=== PATIENT | male | born 1990 | race Caucasian/White ===

== ENCOUNTER 2017-04-17 06:45 | Emergency (ER) | payer SELFPAY ==
[~2017-04-17] VITALS: Ht 175.3 cm; Wt 98.4 kg
[~2017-04-17 06:45] MED LIST: HTN MED PO; LISINOPRIL; METF10002 PO; METF500T27
[2017-04-17] MEDS ORDERED: SODIUM CHLORIDE 0.9% 1,000ML IVBOLUS ONE (09:00)
[2017-04-17] MEDS ORDERED: SODIUM CHLORIDE FLUSH 10ML SYR IVF ONE (09:00)
[2017-04-17 09:22] LABS: BASOPHILS # (AUTO) 0.03 x10^3/uL (0-0.1); BASOPHILS % (AUTO) 0 % (0-1); EOSINOPHILS # (AUTO) 0.14 x10^3/uL (0-0.4); EOSINOPHILS % (AUTO) 2 % (1-7); LYMPHOCYTES # (AUTO) 2.35 x10^3/uL (1-3.4); LYMPHOCYTES % (AUTO) 28 % (22-44); MD NO; MEAN CORPUSCULAR HEMOGLOBIN 29.2 pg (27.5-34.5); MEAN CORPUSCULAR HGB CONC 34.3 g/dL (33.2-36.2); MEAN CORPUSCULAR VOLUME 85.3 fL (81-97); MEAN PLATELET VOLUME 8.8 fL (7.4-10.4); MONOCYTES # (AUTO) 0.45 x10^3/uL (0.2-0.8); MONOCYTES % (AUTO) 5 % (2-9); NEUTROPHILS # (AUTO) 5.43 x10^3/uL (1.8-6.8); NEUTROPHILS % (AUTO) 65 % (42-75); PLATELET COUNT 185 x10^3/uL (130-400); RED BLOOD COUNT 5.67 x10^6/uL (4.38-5.82)
[2017-04-17 09:32] LABS: ALANINE AMINOTRANSFERASE 30 U/L (12-78); ALBUMIN 4.1 g/dL (3.4-5.0); ANION GAP 6 mmol/L (5-15); CALCIUM 8.5 mg/dL (8.5-10.1); CHLORIDE 103 mmol/L (98-107); CREATININE 0.86 mg/dL (0.7-1.3)
[2017-04-17 09:35] LABS: ALKALINE PHOSPHATASE 100 U/L (45-117); BILIRUBIN,TOTAL 0.7 mg/dL (0.2-1.0); TOTAL PROTEIN 7.5 g/dL (6.4-8.2); TROPONIN I < 0.015 ng/mL (0.000-0.045)
[2017-04-17 10:54] VITALS: BP 117/81
== END 2017-04-17 10:56 | disposition home or self-care (01) ==
LOC: ED 10:46
DX: M25.512 Pain in left shoulder (principal); E11.65 Type 2 diabetes mellitus with hyperglycemia; I10 Essential (primary) hypertension
CPT/HCPCS: 36415; 71045; 80053; 82962; 84484; 85025; 93005; 96360; 96361; 99285; J7030

== ENCOUNTER 2017-06-18 23:33 | Emergency (ER) | payer BC, OTHER ==
[~2017-06-18] VITALS: Ht 175.3 cm; Wt 99.8 kg
[2017-06-18 23:58] LABS: MICROSCOPIC INDICATED
[2017-06-19 00:15] LABS: CULTURE INDICATED? NO
[2017-06-19 00:17] LABS: BASOPHILS # (AUTO) 0.03 x10^3/uL (0-0.1); BASOPHILS % (AUTO) 0 % (0-1); EOSINOPHILS # (AUTO) 0.16 x10^3/uL (0-0.4); EOSINOPHILS % (AUTO) 2 % (1-7); LYMPHOCYTES # (AUTO) 3.42 x10^3/uL (1-3.4); LYMPHOCYTES % (AUTO) 32 % (22-44); MD NO; MEAN CORPUSCULAR HEMOGLOBIN 29.7 pg (27.5-34.5); MEAN CORPUSCULAR HGB CONC 34.4 g/dL (33.2-36.2); MEAN CORPUSCULAR VOLUME 86.3 fL (81-97); MEAN PLATELET VOLUME 8.6 fL (7.4-10.4); MONOCYTES # (AUTO) 0.72 x10^3/uL (0.2-0.8); MONOCYTES % (AUTO) 7 % (2-9); NEUTROPHILS # (AUTO) 6.38 x10^3/uL (1.8-6.8); NEUTROPHILS % (AUTO) 60 % (42-75); PLATELET COUNT 214 x10^3/uL (130-400); RED BLOOD COUNT 5.72 x10^6/uL (4.38-5.82); RED CELL DISTRIBUTION WIDTH 13.6 % (9.4-14.8)
[2017-06-19 00:30] LABS: ACETONE, SERUM Trace (10mg/dL) mg/dL (Negative)
[2017-06-19] MEDS ORDERED: SODIUM CHLORIDE FLUSH 10ML SYR IVF ONE (00:30)
[2017-06-19] MEDS ORDERED: SODIUM CHLORIDE 0.9% 1,000ML IVBOLUS ONE (00:30)
[2017-06-19 00:31] LABS: ALANINE AMINOTRANSFERASE 37 U/L (12-78); ANION GAP 10 mmol/L (5-15); CHLORIDE 106 mmol/L (98-107); CREATININE 0.89 mg/dL (0.7-1.3)
[2017-06-19 00:34] LABS: ALKALINE PHOSPHATASE 100 U/L (45-117); BILIRUBIN,TOTAL 0.9 mg/dL (0.2-1.0); TOTAL PROTEIN 7.6 g/dL (6.4-8.2)
[2017-06-19] MEDS ORDERED: FLUCONAZOLE 200 MG TABLET PO STA (00:54)
[2017-06-19] MEDS ORDERED: metFORMIN 500 MG TABLET PO STA (00:54)
[2017-06-19 01:43] VITALS: BP 106/63
== END 2017-06-19 02:03 | disposition home or self-care (01) ==
LOC: ED 23:59
DX: E11.65 Type 2 diabetes mellitus with hyperglycemia (principal); B37.9 Candidiasis, unspecified
CPT/HCPCS: 36415; 80053; 81001; 82010; 85025; 96360; 99284; J7030

== ENCOUNTER 2017-10-26 21:58 | Emergency (ER) | payer SELFPAY ==
[~2017-10-26] VITALS: Ht 175.3 cm; Wt 101.6 kg
[2017-10-26 21:59] VITALS: BP 125/82
[2017-10-26 22:40] LABS: BASOPHILS # (AUTO) 0.03 x10^3/uL (0-0.1); BASOPHILS % (AUTO) 0 % (0-1); EOSINOPHILS # (AUTO) 0.23 x10^3/uL (0-0.4); EOSINOPHILS % (AUTO) 3 % (1-7); LYMPHOCYTES % (AUTO) 31 % (22-44); MD NO; MEAN CORPUSCULAR HEMOGLOBIN 29.9 pg (27.5-34.5); MEAN CORPUSCULAR HGB CONC 34.5 g/dL (33.2-36.2); MEAN CORPUSCULAR VOLUME 86.6 fL (81-97); MEAN PLATELET VOLUME 8.6 fL (7.4-10.4); MONOCYTES # (AUTO) 0.67 x10^3/uL (0.2-0.8); MONOCYTES % (AUTO) 7 % (2-9); NEUTROPHILS # (AUTO) 5.56 x10^3/uL (1.8-6.8); NEUTROPHILS % (AUTO) 59 % (42-75); PLATELET COUNT 205 x10^3/uL (130-400); RED BLOOD COUNT 5.39 x10^6/uL (4.38-5.82)
[2017-10-26 22:51] LABS: ALBUMIN 3.9 g/dL (3.4-5.0); ANION GAP 8 mmol/L (5-15); CALCIUM 8.5 mg/dL (8.5-10.1); CHLORIDE 104 mmol/L (98-107); CREATININE 0.94 mg/dL (0.7-1.3)
== END 2017-10-26 23:28 | disposition home or self-care (01) ==
LOC: ED 22:55
DX: R42 Dizziness and giddiness (principal); I10 Essential (primary) hypertension; E11.65 Type 2 diabetes mellitus with hyperglycemia
CPT/HCPCS: 36415; 80048; 82040; 82962; 85025; 93005; 99285

== ENCOUNTER 2017-11-16 18:19 | Emergency (ER) | payer SELFPAY ==
[~2017-11-16] VITALS: Ht 175.3 cm; Wt 103.0 kg
[2017-11-16 19:25] LABS: ALANINE AMINOTRANSFERASE 50 U/L (12-78); ANION GAP 9 mmol/L (5-15); CALCIUM 8.8 mg/dL (8.5-10.1); CHLORIDE 103 mmol/L (98-107); CREATININE 0.82 mg/dL (0.7-1.3)
[2017-11-16 19:27] LABS: ALKALINE PHOSPHATASE 90 U/L (45-117); TOTAL PROTEIN 7.7 g/dL (6.4-8.2)
[2017-11-16 19:28] LABS: BASOPHILS # (AUTO) 0.01 x10^3/uL (0-0.1); BASOPHILS % (AUTO) 0 % (0-1); EOSINOPHILS # (AUTO) 0.25 x10^3/uL (0-0.4); EOSINOPHILS % (AUTO) 2 % (1-7); LYMPHOCYTES # (AUTO) 1.14 x10^3/uL (1-3.4); LYMPHOCYTES % (AUTO) 9 % (22-44); MD NO; MEAN CORPUSCULAR HEMOGLOBIN 29.5 pg (27.5-34.5); MEAN CORPUSCULAR HGB CONC 34.2 g/dL (33.2-36.2); MEAN CORPUSCULAR VOLUME 86.2 fL (81-97); MEAN PLATELET VOLUME 8.9 fL (7.4-10.4); MONOCYTES # (AUTO) 0.74 x10^3/uL (0.2-0.8); MONOCYTES % (AUTO) 6 % (2-9); NEUTROPHILS # (AUTO) 10.83 x10^3/uL (1.8-6.8); NEUTROPHILS % (AUTO) 84 % (42-75); PLATELET COUNT 201 x10^3/uL (130-400); RED BLOOD COUNT 5.49 x10^6/uL (4.38-5.82); RED CELL DISTRIBUTION WIDTH 13.2 % (9.4-14.8)
[2017-11-16 20:21] LABS: MICROSCOPIC NOT IND
[2017-11-16 20:24] LABS: CULTURE INDICATED? NO
[2017-11-16 20:38] VITALS: BP 117/83
== END 2017-11-16 20:57 | disposition home or self-care (01) ==
LOC: ED 20:55
DX: G44.209 Tension-type headache, unspecified, not intractable (principal); R42 Dizziness and giddiness; I10 Essential (primary) hypertension; E11.9 Type 2 diabetes mellitus without complications; F17.200 Nicotine dependence, unspecified, uncomplicated
CPT/HCPCS: 36415; 71045; 80053; 81003; 85025; 93005; 99285

== ENCOUNTER 2019-10-27 11:14 | Emergency (ER) | payer SELFPAY ==
[~2019-10-27] VITALS: Ht 175.3 cm; Wt 95.0 kg
[2019-10-27 11:59] LABS: BASOPHILS # (AUTO) 0.04 x10^3/uL (0-0.1); BASOPHILS % (AUTO) 1 % (0-1); EOSINOPHILS % (AUTO) 1 % (1-7); LYMPHOCYTES # (AUTO) 1.83 x10^3/uL (1-3.4); LYMPHOCYTES % (AUTO) 24 % (22-44); MD NO; MEAN CORPUSCULAR HGB CONC 33.6 g/dL (33.2-36.2); MEAN CORPUSCULAR VOLUME 86.1 fL (81-97); MEAN PLATELET VOLUME 8.6 fL (7.4-10.4); MONOCYTES # (AUTO) 0.43 x10^3/uL (0.2-0.8); MONOCYTES % (AUTO) 6 % (2-9); NEUTROPHILS # (AUTO) 5.18 x10^3/uL (1.8-6.8); NEUTROPHILS % (AUTO) 68 % (42-75); PH, VENOUS 7.397 pH (7.320-7.420); PLATELET COUNT 178 x10^3/uL (130-400); RED BLOOD COUNT 5.58 x10^6/uL (4.38-5.82); RED CELL DISTRIBUTION WIDTH 13.1 % (9.4-14.8)
[2019-10-27] MEDS ORDERED: SODIUM CHLORIDE 0.9% 1,000ML IVBOLUS ONE ×2 (12:00→13:00)
--- NOTE | 2019-10-27 12:05 | NUR ---
URINE SAMPLE COLLECTED.
[2019-10-27] MEDS ORDERED: METF500T17 PO (12:09)
[2019-10-27 12:10] LABS: ALBUMIN 4.1 g/dL (3.4-5.0); ANION GAP 9 mmol/L (5-15); CALCIUM 8.9 mg/dL (8.5-10.1); CHLORIDE 101 mmol/L (98-107); CREATININE 1.15 mg/dL (0.7-1.3)
[2019-10-27 12:18] LABS: MICROSCOPIC NOT IND
[2019-10-27 12:47] LABS: ACETONE, SERUM Trace (Negative)
[2019-10-27] MEDS ORDERED: INSULIN REGULAR 100 UNITS/ML, 3ML VIAL IVPush ONE (13:00)
[2019-10-27] MEDS ORDERED: INSULIN SINGLE DOSE, ER ONE (13:05)
[2019-10-27 13:54] VITALS: BP 109/64
== END 2019-10-27 14:24 | disposition home or self-care (01) ==
LOC: ED 11:39
DX: E11.65 Type 2 diabetes mellitus with hyperglycemia (principal); I10 Essential (primary) hypertension; R35.8 Other polyuria
CPT/HCPCS: 36415; 80048; 81003; 82010; 82040; 82803; 82962; 85025; 96361; 96374; 99283; J1815; J7030

== ENCOUNTER 2020-04-06 17:21 | Emergency (ER) | payer SELFPAY ==
[~2020-04-06] VITALS: Ht 175.3 cm; Wt 59.4 kg
[~2020-04-06 17:21] MED LIST changes: +METF500T17 PO
--- NOTE | 2020-04-06 18:14 | NUR ---
RADIO MAINTAINER: PT TO ROOM FROM LOBBY
[2020-04-06 18:15] LABS: BASOPHILS % (AUTO) 1 % (0-1); EOSINOPHILS % (AUTO) 1 % (1-7); LYMPHOCYTES % (AUTO) 18 % (22-44); MEAN CORPUSCULAR HGB CONC 34.6 g/dL (33.2-36.2); MEAN PLATELET VOLUME 8.6 fL (7.4-10.4); MONOCYTES % (AUTO) 5 % (2-9); NEUTROPHILS % (AUTO) 75 % (42-75); PLATELET COUNT 215 x10^3/uL (130-400); RED BLOOD COUNT 5.61 x10^6/uL (4.38-5.82); RED CELL DISTRIBUTION WIDTH 13.9 % (9.4-14.8)
--- NOTE | 2020-04-06 18:16 | NUR ---
BREAK RN: PT C/O CENTER ABD PAIN X5 DAYS. VS STABLE. NO ACUTE DISTRESS NOTED. CALL LIGHT IN PLACE. REPORT GIVEN TO RONY CHANDLER
[2020-04-06 18:18] LABS: ALANINE AMINOTRANSFERASE 32 U/L (12-78); ALBUMIN 4.2 g/dL (3.4-5.0); ANION GAP 9 mmol/L (5-15); CALCIUM 8.9 mg/dL (8.5-10.1); CHLORIDE 103 mmol/L (98-107); CREATININE 0.85 mg/dL (0.7-1.3)
[2020-04-06 18:20] LABS: ALKALINE PHOSPHATASE 97 U/L (45-117); BILIRUBIN,TOTAL 0.7 mg/dL (0.2-1.0); TOTAL PROTEIN 7.4 g/dL (6.4-8.2)
[2020-04-06 18:24] LABS: MD NO
--- NOTE | 2020-04-06 18:24 | NUR ---
BREAK RN: REPORT GIVEN TO RONY AMYO
[2020-04-06 18:30] VITALS: BP 106/65
--- NOTE | 2020-04-06 18:44 | NUR ---
pt in bed with no signs or symptoms of acute distress noted respirations even and unlabored md at bedside to do ultrasound.
[2020-04-06 18:50] LABS: MICROSCOPIC NOT IND
== END 2020-04-06 19:40 | disposition home or self-care (01) ==
LOC: ED 19:30
DX: R10.84 Generalized abdominal pain (principal); K59.00 Constipation, unspecified; I10 Essential (primary) hypertension; E11.9 Type 2 diabetes mellitus without complications; Z90.89 Acquired absence of other organs
CPT/HCPCS: 36415; 80053; 81003; 85025; 99283

== ENCOUNTER 2020-05-04 16:33 | Emergency (ER) | payer OTHER ==
[~2020-05-04] VITALS: Ht 175.3 cm; Wt 92.3 kg
[2020-05-04 16:50] VITALS: BP 117/77
--- NOTE | 2020-05-04 17:05 | NUR ---
Pt found in room with c-collar in use lying flat on ED gurney speaking on his cellphone. Visitor at bedside in chair as well. Awaiting MD exam. kitchen designer completed.
[2020-05-04] MEDS ORDERED: ACETAMINOPHEN 500 MG TABLET ONE (17:15)
--- NOTE | 2020-05-04 17:18 | NUR ---
Pt medicated with Tylenol as ordered. 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 Awaiting radiology now.
[2020-05-04] MEDS ORDERED: ACETAMINOPHEN 500 MG TABLET PO ONE (17:30)
--- NOTE | 2020-05-04 18:10 | NUR ---
Report given to meal break José Antonio URIBE, and care transferred.
--- NOTE | 2020-05-04 18:40 | NUR ---
Care reassumed. José Antonio reports pt is out of c-collar and has one more radiology exam ordered.
== END 2020-05-04 19:40 | disposition home or self-care (01) ==
LOC: ED 19:34
DX: S16.1XXA Strain of muscle, fascia and tendon at neck level, initial encounter (principal); S39.012A Strain of muscle, fascia and tendon of lower back, initial encounter; E11.9 Type 2 diabetes mellitus without complications; V49.09XA Driver injured in collision with other motor vehicles in nontraffic accident, initial encounter; Y93.89 Activity, other specified; Y92.410 Unspecified street and highway as the place of occurrence of the external cause; Y99.8 Other external cause status
CPT/HCPCS: 72110; 72125; 99284

== ENCOUNTER 2020-10-04 19:36 | Emergency (ER) | payer OTHER ==
[~2020-10-04] VITALS: Ht 175.3 cm; Wt 88.8 kg
--- NOTE | 2020-10-04 22:34 | NUR ---
PT AMBULATED TO ROOM. FIRST CONTACT WITH PT. NADN. LEPES. WILL CONTINUE TO MONITOR.
[2020-10-04 22:43] VITALS: BP 114/70
== END 2020-10-04 22:45 | disposition home or self-care (01) ==
LOC: ED 19:46
DX: U07.1 COVID-19 (principal); J06.9 Acute upper respiratory infection, unspecified; M79.674 Pain in right toe(s); R05 Cough; R51.9 Headache, unspecified; I10 Essential (primary) hypertension; E11.9 Type 2 diabetes mellitus without complications
CPT/HCPCS: 71045; 99284; U0003; U0005

== ENCOUNTER 2020-10-23 09:14 | Emergency (ER) | payer SELFPAY ==
[~2020-10-23] VITALS: Ht 175.3 cm; Wt 84.1 kg
--- NOTE | 2020-10-23 09:24 | NUR ---
patient arrives with new onset bilater foot pain, urgency to urinate, and blurry vision that started thee days ago. patient has hx diabetes. he states out metformin and he has no insurance.
[2020-10-23] MEDS ORDERED: SODIUM CHLORIDE 0.9% 1,000ML IVBOLUS ONE (10:00)
[2020-10-23 10:07] LABS: BASOPHILS % (AUTO) 1 % (0-1); EOSINOPHILS % (AUTO) 1 % (1-7); LYMPHOCYTES % (AUTO) 26 % (22-44); MEAN CORPUSCULAR HEMOGLOBIN 28.8 pg (27.5-34.5); MEAN CORPUSCULAR HGB CONC 35.1 g/dL (33.2-36.2); MEAN PLATELET VOLUME 7.9 fL (7.4-10.4); MONOCYTES % (AUTO) 7 % (2-9); NEUTROPHILS % (AUTO) 64 % (42-75); PLATELET COUNT 249 x10^3/uL (130-400); RED BLOOD COUNT 5.47 x10^6/uL (4.38-5.82); RED CELL DISTRIBUTION WIDTH 13.7 % (9.4-14.8)
[2020-10-23 10:18] LABS: ALBUMIN 3.5 g/dL (3.4-5.0); ANION GAP 5 mmol/L (5-15); CALCIUM 8.8 mg/dL (8.5-10.1); CHLORIDE 102 mmol/L (98-107); CREATININE 0.79 mg/dL (0.7-1.3)
--- NOTE | 2020-10-23 11:45 | NUR ---
550 DARK URINE OUT
[2020-10-23] MEDS ORDERED: metFORMIN 500 MG TABLET ONE (12:56)
[2020-10-23] MEDS ORDERED: metFORMIN 500 MG TABLET PO ONE (13:00)
[2020-10-23 13:05] VITALS: BP 113/78
== END 2020-10-23 13:10 | disposition home or self-care (01) ==
LOC: ED 10:55
DX: E11.65 Type 2 diabetes mellitus with hyperglycemia (principal); E11.40 Type 2 diabetes mellitus with diabetic neuropathy, unspecified
CPT/HCPCS: 36415; 80048; 82040; 82962; 85025; 96360; 96361; 99285; J7030